=== PATIENT | male | born 1960 | race Caucasian/White ===

== ENCOUNTER → 2016-10-07 | Outpatient (CLI) | payer BC | LOC: FIMAGING 11:46 | PROVIDERS: ATTEND Family Medicine | DX: R42 Dizziness and giddiness (principal); R25.1 Tremor, unspecified ==

== ENCOUNTER → 2016-12-14 | Outpatient (CLI) | payer BC | LOC: FLAB 17:51 → FIMAGING 17:53 | PROVIDERS: ATTEND Family Medicine | DX: Q67.6 Pectus excavatum (principal); R06.02 Shortness of breath; I10 Essential (primary) hypertension ==

== ENCOUNTER → 2016-12-15 | Outpatient (CLI) | payer BC ==
[~2016-12-15] MED LIST: IOPAMIDOL (ISOVUE-300) 100 ML BTL ONE
== END ==
LOC: FIMAGING 11:59
PROVIDERS: ATTEND Family Medicine
DX: R68.81 Early satiety (principal); R10.816 Epigastric abdominal tenderness; K59.00 Constipation, unspecified
CPT/HCPCS: Q9967

== ENCOUNTER → 2017-02-02 | Outpatient (CLI) | payer BC | LOC: FIMAGING 07:57 | PROVIDERS: ATTEND Family Medicine | DX: K80.20 Calculus of gallbladder without cholecystitis without obstruction (principal); R10.11 Right upper quadrant pain; R10.13 Epigastric pain; R68.81 Early satiety ==

== ENCOUNTER → 2019-01-23 | Outpatient (CLI) | payer BC | LOC: FIMAGING 16:36 ==